=== PATIENT | female | born 1980 | race Hispanic/Latino ===

== ENCOUNTER 2024-05-07 12:43 | Emergency (ER) | payer OTHER, SELFPAY ==
[2024-05-07] VITALS (7 sets, daily range): BP systolic 98–138; BP diastolic 75–98; BMI 34.4
[2024-05-07 13:23] LABS: % Basophils 0.4 % (0-2); % Immature Granulocytes 0.2 % (0-0.5); % Lymphocytes 41.3 % (20.5-51.1); % Monocytes 15.6 % (1.7-9.3); % Neutrophils 42.5 % (42.2-75.2); Absolute Lymphocytes 2.1 10^3/uL (1.2-3.4); Absolute Monocytes 0.8 10^3/uL (0.1-0.6); Absolute Neutrophils 2.1 10^3/uL (1.4-6.5); Hematocrit 43.3 % (37.0-47.0); Mean Corp Hgb Conc. 34.6 g/dL (33.0-37.0); Mean Corpuscular Hgb 27.2 pg (27.0-31.0); Mean Corpuscular Volume 78.4 fL (81.0-99.0); Mean Platelet Volume 9.6 fL (7.4-10.4); Nucleated Red Blood Cells % 0 %; Platelet Count 318 10^3/uL (130-400); Red Blood Cell Count 5.52 10^6/uL (4.20-5.40); Red Cell Dist. Width 12.8 % (11.5-14.5)
[2024-05-07 13:42] LABS: COVID-19 Antigen Negative (Negative)
[2024-05-07 14:32] LABS: ALT (SGPT) 144 U/L (0-35); AST (SGOT) 104 U/L (14-36); Albumin 4.6 g/dl (3.5-5.0); Alkaline Phosphatase 112 U/L (38-126); Blood Urea Nitrogen 13 mg/dl (7-17); Calcium 9.6 mg/dl (8.4-10.2); Carbon Dioxide 25 mmol/L (22-30); Chloride 97 mmol/L (98-107); Glucose 225 mg/dl (70-99); Potassium 3.8 mmol/L (3.5-5.1); Sodium 136 mmol/L (135-145); Total Bilirubin 0.6 mg/dl (0.2-1.3); Total Protein 7.6 g/dl (6.3-8.2); eGFR > 60.00
--- NOTE | 2024-05-07 15:29 | ED.GENMED ---
History of Present Illness
General
Chief Complaint: Dizziness
Time Seen by Provider: 05/07/24 15:13
History of Present Illness
History of Present Illness:
44-year-old female with history of type 2 diabetes as well as hypertension presents to the emergency department for evaluation of dizziness and syncope. She reports having multiple syncopal events today, and has been 'sick' with viral symptoms
since . No chest pain but does feel short of breath particular with exertion. No associated fever today. Does note that her hypertension was diagnosed 6 weeks ago when she was started on olmesartan
Review of Systems
Review of Systems
Allergies reviewed?: Yes
All Other Systems: ROS reviewed and negative except as documented in HPI and ROS
Phy Exam
Physical Exam
Physical Exam:
GEN: Well appearing, NAD, WDWN
HEENT: Oral mucosa moist, no scleral icterus
Cardiac: Regular rate and rhythm, no murmurs
Lung: No respiratory distress, no tachypnea
MSK: No gross deformity or injuries
Skin: Good color, no pallor or jaundice, no rashes
Neuro: AO x3, moves all extremities freely
Psych: Calm, cooperative
Course
Orders/Labs/Results
Orders:
Orders
05/07/24 13:05
ECG [Electrocardiogram (*1)] Urgent
Reason for Study: Vertigo / Dizzy
EKG- Treatment ONCE
05/07/24 13:13
COVID-19 Antigen Urgent
Source: Nasal Swab
Complete Blood Count/With Diff Urgent
Comprehensive Metabolic Panel Urgent
Influenza A+B Rapid Molecular Urgent
FE Source: Nasal Swab
Specimen Description:
05/07/24 15:29
0.9% Sodium Chloride 1000 ml [Nss] 1,000 ml IV BOLUS
05/07/24 18:24
CR Chest - 2 Views Urgent
Comment:
Reason For Exam: cough, SOB
05/07/24 18:25
Lactated Ringers [Lr] 1,000 ml IV BOLUS
Abnormal Lab Results
05/07/24
13:13
RBC 5.52 H 10^6/uL
(4.20-5.40)
MCV 78.4 L fL
(81.0-99.0)
Absolute Monos (auto) 0.8 H 10^3/uL
(0.1-0.6)
Monocytes % 15.6 H %
(1.7-9.3)
Chloride 97 L mmol/L
(98-107)
Glucose 225 H mg/dl
(70-99)
AST 104 H U/L
(14-36)
ALT 144 H U/L
(0-35)
05/07/24 13:13
05/07/24 13:13
Vital Signs
Initial and Last Documented VS:
Initial Vital Signs
Temp Pulse Resp BP Pulse Ox
98.3 F 133 22 138/98 100
05/07/24 13:02 05/07/24 13:02 05/07/24 13:02 05/07/24 13:02 05/07/24 13:02
Last Documented Vital Signs
Temp Pulse Resp BP Pulse Ox
98.5 F 97 18 114/86 98
05/07/24 17:19 05/07/24 21:23 05/07/24 21:23 05/07/24 21:23 05/07/24 21:23
MDM/Problems Addressed
MDM/Problems Addressed:
Patient's recurrent vasovagal syncope most likely mediated by dehydration in the setting of influenza, treated with 2 L IV fluids with marked improvement in symptoms. No indication for antivirals
*Critical Care Note
Total Time (30-74mins, 75-104mins- exclusive of procedures): Not Applicable
ED Attending Note
-
Portions of this chart may have been created with voice recognition software.� Occasional wrong word or��sound alike� substitutions may have occurred due to the inherent limitations of voice recognition software.
Discharge Plan
Departure
Patient Disposition: Home (Routine Discharge)
Date of Disposition: 05/07/24
Time of Disposition: 20:39
Patient with high blood pressure during this ER visit?: No
Discharge Problem:
Influenza
Instructions: Vasovagal Response (DC)
Referrals:
Daniel Miller DO [Family Provider] -
Interventions
Interventions:
*Risk Screen - Suicide Last Done: 05/07/24 13:02
*General Assessment Last Done: 05/07/24 13:02
*Neglect/Abuse Screening Last Done: 05/07/24 13:02
*ED COVID-19 Vaccine History Last Done: 05/07/24 17:20
ED- Neurological Assessment Last Done: 05/07/24 17:22
ED- Cardiac Assessment Last Done: 05/07/24 17:22
Discharge Date and Time
Print Language: PASHTO
[2024-05-07] MEDS: NSS 1000 IV (16:38)
[2024-05-07] MEDS: LR 1000 IV (18:33)
== END 2024-05-07 21:40 | disposition home or self-care (01) ==
LOC: EMR 12:43
PROVIDERS: Emergency Medicine; EMERGENCY PHYSICIAN Emergency Medicine; FAMILY PHYSICIAN Family Medicine
DX: R55 Syncope and collapse (principal); J10.1 Influenza due to other identified influenza virus with other respiratory manifestations; Z11.52 Encounter for screening for COVID-19; I10 Essential (primary) hypertension; E11.9 Type 2 diabetes mellitus without complications; Z88.5 Allergy status to narcotic agent
CPT/HCPCS: 99284; 96360; 71046; 80053; 85025; 87502; 87811; 93005